=== PATIENT | male | born 1990 | race Caucasian/White ===

== ENCOUNTER 2019-07-20 07:44 | Emergency (ER) | payer BC, SELFPAY ==
[2019-07-20 07:50] VITALS: BP 153/106; PULSE 75; RESP 16; TEMP 36.4; O2SAT 97
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
--- NOTE | 2019-07-20 08:33 | DI.RAD_ITS ---
EXAM: XR WRIST LT COMPLETE CLINICAL HISTORY: trauma TECHNIQUE: COMPARISON: No exams were available for comparison FINDINGS: Three views were obtained. Carpal alignment appears normal. No fracture seen. IMPRESSION:
[2019-07-20] MEDS: Acetaminophen 500 MG TAB 1000 MG PO (08:37)
--- NOTE | 2019-07-20 09:01 | NUR.NOTE ---
Nursing Note: FAXED REFERRAL TO ORTHO
== END 2019-07-20 08:57 | disposition home or self-care (01) ==
PROVIDERS: Emergency Provider Emergency Medicine
DX: S69.92XA Unspecified injury of left wrist, hand and finger(s), initial encounter (principal); V86.56XA Driver of dirt bike or motor/cross bike injured in nontraffic accident, initial encounter
CPT/HCPCS: 29125; 99283; 73110; L3807

== ENCOUNTER 2019-07-26 12:27 | Outpatient (CLI) | payer BC, SELFPAY ==
--- NOTE | 2019-07-26 12:30 | DI.RAD_ITS ---
EXAM: XR WRIST LT COMP NAVICULAR CLINICAL HISTORY: pain. TECHNIQUE: 2D digital imaging was performed. COMPARISON: No exams were available for comparison FINDINGS: BONES: No acute fracture is present. No bony destructive lesion is seen. JOINTS: The carpal bones are normally aligned. SOFT TISSUE: Normal. IMPRESSION: Unremarkable radiographs of the left wrist. DATA REPOSITORY: RADIATION DOSE DELIVERED:
== END 2019-07-26 12:47 ==
PROVIDERS: Referring Provider Emergency Medicine; Visit Provider Orthopaedic Surgery
DX: M25.532 Pain in left wrist (principal)
CPT/HCPCS: 73110

== ENCOUNTER 2019-08-13 20:05 | Emergency (ER) | payer BC, SELFPAY ==
[2019-08-13 20:09] VITALS: BP 146/101; PULSE 196; RESP 21; TEMP 36.9; O2SAT 95
[2019-08-13 20:11] VITALS: BP 146/101; PULSE 146; PULSE 198; RESP 22
[2019-08-13 20:12] VITALS: PULSE 198; RESP 19
[2019-08-13 20:20] VITALS: PULSE 195; RESP 22; O2SAT 95
--- NOTE | 2019-08-13 20:29 | ED.GENADUL_ITS ---
Discharge Plan Disposition Patient Disposition: HOME Condition: Stable Discharge Details Chief Complaint: Palpitatns Clinical Impression: SVT (supraventricular tachycardia) Primary Care Provider: None,None ED Provider: Rivas Solis Home Meds and New Rx's Prescriptions: No Action No Known Home Meds RF: 0 Discharge Instructions Instructions: Supraventricular Tachycardia (ED) Additional Instructions: Follow up with your primary care provider. 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 He denies chest pain or pressure lightheadedness, state he just feels very mild shortness of breath. He arrives in svt with rates in 200's otherwise hd stable, speaking in full sentences. Nursing placed ice on his face which broke the svt. Given lack of chest pain or pressure doubt acs. no evidence of dvt on exam and svt would explain his svt, no hypoxia so doubt PE. Will check for anemia, electrolyte abnormalities and monitor. pt remains stable in sinus rhythm, mildly low tsh and mildly elevated lft's which could be from alcohol as he does drink occasionally. Advised to f/u with pcp and return precautions given Differential Diagnosis Differential Diagnosis: svt, hyperthyroid, anemia ECG Data Attestation: I personally reviewed and interpreted this ECG (s) as follows: Prior ECG tracings: not available for review Interpretation: 1st ekg SVT rate of 201 qtc 391 2nd ekg sinus tachycardia rate of 109 pr 140 qtc 423 HPI General Mode of arrival: ambulatory . Date/Time Provider Initiated Documentation: 08/13/19 20:13 . Limitations to Documentation: no limitations . Information obtained by: patient . History of Present Illness 28 year old M presents to the emergency department with the chief complaint of shortness of breath, described as moderate, and it has been constant. No relieving factors improve symptom(s), No exacerbating factors reported . Patient did receive the following treatments prior to arrival, none Related Data Home Medications Medication Instructions Recorded Confirmed Unknown [No Known Home Meds] 07/26/19 08/13/19 Allergies Allergy/AdvReac Type Severity Reaction Status Date / Time No Known Allergies Allergy Verified 08/13/19 20:14 General Stated Complaint: Palpitatns JOHN: 2 Review of Systems All systems reviewed & are unremarkable except as noted in HPI and below Constitutional Constitutional: Denies chills, Denies fever(s) and Denies weakness Cardiovascular Cardiovascular: Denies chest pain Respiratory Respiratory: Denies cough Gastrointestinal Gastrointestinal: Denies abdominal pain, Denies nausea and Denies vomiting Musculoskeletal Musculoskeletal: Denies joint swelling Neurologic Neurologic: Denies weakness PFSH Social History Smoking/Tobacco Use Status: Never Alcohol Intake: current Alcohol Intake frequency: holidays/special occasions only Drug use: Never Substance use type: does not use Do you feel safe at home: Yes Do you feel safe in your relationship?: Yes Exam Const General: no acute distress Orientation: alert HENMT Head: normal to inspection Ears: external ears normal General nose exam: external nose normal Mouth: moist mucous membranes Eyes General: appearance normal, both eyes and all related structures Neck Neck: normal visual inspection Resp Effort & Inspection: normal respiratory effort and able to speak in complete sen tences Cardio Jugular venous pressure: no JVD Rate: tachycardic Skin General skin exam: no rashes or lesions noted Neuro General: patient alert and patient oriented x3 Extrem General: normal to inspection Psych Mental Status: mental status grossly normal Course Vital Signs Vital signs: Vital Signs Temperature 36.9 C 08/13/19 20:09 Pulse 196 H 08/13/19 20:09 Respiratory Rate 21 08/13/19 20:09 Blood Pressure 146/101 H 08/13/19 20:09 Pulse Oximetry 95 08/13/19 20:09 Temperature 36.9 C 08/13/19 20:09 Temperature Source Skin 08/13/19 20:09 Pulse 196 H 08/13/19 20:09 Respiratory Rate 21 08/13/19 20:09 Blood Pressure 146/101 H 08/13/19 20:09 Blood Pressure Position Supine 08/13/19 20:09 Pulse Oximetry 95 08/13/19 20:09 Oxygen Delivery Method Room Air 08/13/19 20:09 Oxygen Flow Rate 0 08/13/19 20:09
[2019-08-13 20:30] VITALS: PULSE 110; RESP 29; O2SAT 95
[2019-08-13 20:40] VITALS: PULSE 112; RESP 28; O2SAT 95
[2019-08-13 20:40] LABS: Abs Immature Grans 0.02 k/cumm (0.0-0.09); Absolute Basophil Count 0.02 k/cumm (0.0-0.2); Absolute Eosinophil Count 0.06 k/cumm (0.0-0.7); Absolute Lymphocyte Count 3.16 k/cumm (1.2-3.4); Absolute Monocyte Count 0.62 k/cumm (0.11-0.7); Absolute Neutrophil Count 3.75 k/cumm (1.2-6.7); Basophils % 0.3; Eosinophils % 0.8; HCT 43.5 % (40.0-50.0); HGB 15.9 g/dL (13.5-17.5); Immature Grans % 0.3 %; Lymphocytes % 41.4; Mean Corp. HGB Concentration 36.6 g/dL (32.0-36.0); Mean Corpuscular Hemoglobin 31.2 pg (27.0-33.0); Mean Corpuscular Volume 85.5 fL (80-95); Mean Platelet Volume 11.5 fL (8.0-11.0); Monocytes % 8.1; Neutrophils % 49.1; Platelet Count 215 x1000/uL (130-400); RBC 5.09 m/cumm (4.50-6.00); RBC Distribution Width 13.5 % (11.8-14.1); White Blood Cell Count 7.63 k/cumm (4.4-10.8)
[2019-08-13 20:52] LABS: ALT 87 U/L (16-63); AST 47 U/L (15-37); Albumin 4.1 g/dL (3.4-5.0); Alkaline Phosphatase 81 U/L (46-116); Anion Gap 12.5 mmol/L (3-11); BUN 9 mg/dL (7-18); Bilirubin, Total 0.5 mg/dL (0.2-1.0); CO2 24.5 mmol/L (21.0-32.0); CREATININE 1.12 mg/dL (0.70-1.30); Calcium 8.3 mg/dL (8.5-10.1); Chloride 104 mmol/L (98-107); Glucose 124 mg/dL (74-106); Potassium 3.9 mmol/L (3.5-5.1); Sodium 141 mmol/L (136-145); TSH (W/Ref FT4) 0.29 uIU/mL (0.36-3.74); Total Protein 7.6 g/dL (6.4-8.2)
[2019-08-13 21:10] LABS: FREE T4 1.27 ng/dL (0.76-1.46)
== END 2019-08-13 21:11 | disposition home or self-care (01) ==
PROVIDERS: Emergency Provider Emergency Medicine
DX: I47.1 Supraventricular tachycardia (principal); R06.02 Shortness of breath; R94.6 Abnormal results of thyroid function studies
CPT/HCPCS: 36415; 80053; 93005; 99284; 84439; 84443; 85025; 93010; J0153

== ENCOUNTER 2021-07-16 22:10 | Emergency (ER) | payer OTHER, SELFPAY ==
[2021-07-16] VITALS (17 sets, daily range): BP systolic 111–130; BP diastolic 67–79; PULSE 102–212; RESP 13–39; TEMP 36.6; O2SAT 94–98
--- NOTE | 2021-07-16 22:00 | RT.EKG_ITS ---
APPROVED REPORT Exam: Resting ECG Reason for Exam: chest pain Patient Location: E HR:204 bpm ECG Measurements Heart Rate 204 AXIS CA [id number] P [id number] QRSd 79 QRS 69 QT 249 T -1 QTc 459 Conclusion Atrial fibrillation with rapid V-rate...A-rate 205
--- NOTE | 2021-07-16 22:30 | RT.EKG_ITS ---
APPROVED REPORT Exam: Resting ECG Reason for Exam: chest pain Patient Location: E HR:82 bpm ECG Measurements Heart Rate 82 AXIS HI 142 P 39 QRSd 93 QRS 31 QT 349 T 26 QTc 408 Conclusion Sinus rhythm...normal P axis, V-rate 60- 99 Normal [place] Normal Electrocardiogram There are no significant changes compared to prior EKG performed on 07/16/2021 at 22:23.
[2021-07-16] MEDS: Normal Saline 1,000 ML 1000 ML IV (22:45)
[2021-07-16] MEDS: Adenosine 6 MG/2 ML VIAL (22:45)
--- NOTE | 2021-07-16 22:46 | W.ED.GENAD ---
Discharge Plan Disposition Patient Disposition: STILL A PATIENT Condition: Improving Discharge Details Chief Complaint: Chest Pain Clinical Impression: SVT (supraventricular tachycardia), Hypokalemia Primary Care Provider: Maria Esther,Local ED Provider: Sean Connell Home Meds and New Rx's Prescriptions: No Action No Known Home Meds 0RF Medical Decision Making [id number]??30-year-old male with history of SVT, here with chest discomfort with palpitations over the past 1 hour. I reviewed threat monitoring analyst and note regular tachycardia at 200bpm, consistent with SVT. EKG was reviewed and interpreted by me: Please see report, SVT. Attempted vagal maneuvers and these are unsuccessful. Patient provided emergent informed consent to adenosine. Adenosine 6 mg IV was administered and patient converted to converted to sinus rhythm without complication. Repeat EKG was reviewed and interpreted by me: Please see report, sinus tachycardia 102 bpm with no ischemic changes. Labs reviewed and mild hypokalemia noted with potassium of 3.4. I will give potassium chloride 20 mill equivalents p.o. Initial troponin negative. HPI General Mode of arrival: ambulatory. Date/Time Provider Initiated Documentation: 07/16/21 22:45. Limitations to Documentation: no limitations. Information obtained by: patient. HPI Narrative: 30-year-old male with history of SVT presents with chief complaint of palpitations and concern for SVT. Patient notes frequency of SVT is increased to almost monthly at this point. He notes typically SVT improves spontaneously or with vagal maneuvers after a short time. Tonight SVT is persisting for the past hour. Symptoms are moderate. No modifiers. Vagal maneuvers not working. He has associated chest discomfort. Patient does drink some caffeinated beverages and alcoholic beverages a few days a week. No sympathomimetic use. Related Data Home Medications Medication Instructions Recorded Confirmed Unknown [No Known Home Meds] 07/26/19 08/13/19 Allergies Allergy/AdvReac Type Severity Reaction Status Date / Time No Known Allergies Allergy Verified 08/13/19 20:14 General Stated Complaint: Chest/Rib JOHN: 1 Review of Systems All systems reviewed & are unremarkable except as noted in HPI and below Constitutional Constitutional: Denies fever(s) Cardiovascular Cardiovascular: Reports chest pain, Reports palpitations and Denies dyspnea Respiratory Respiratory: Denies dyspnea Endocrine Endocrine: Reports palpitations PFSH All Active Problems (Updated 07/16/21 @ 23:18 by Sean Connell MD) SVT (supraventricular tachycardia) (Chronic) Hypokalemia (Acute) SVT (supraventricular tachycardia) (Chronic) Social History Smoking/Tobacco Use Status: Never Smoking risk assessment performed?: Yes Alcohol Intake: current Alcohol Intake frequency: holidays/special occasions only Drug use: Never Substance use type: does not use Do you feel safe at home: Yes Do you feel safe in your relationship?: Yes Course Vital Signs Vital signs: Vital Signs Temperature 36.6 C 07/16/21 22:26 Pulse 212 H 07/16/21 22:26 Respiratory Rate 18 07/16/21 22:26 Blood Pressure 116/79 07/16/21 22:26 Pulse Oximetry 96 07/16/21 22:26 Temperature 36.6 C 07/16/21 22:26 Temperature Source Temporal Artery Scan 07/16/21 22:26 Pulse 212 H 07/16/21 22:26 Respiratory Rate 18 07/16/21 22:26 Blood Pressure 116/79 07/16/21 22:26 Blood Pressure Position Sitting 07/16/21 22:26 Pulse Oximetry 96 07/16/21 22:26 Pain Level 3 07/16/21 22:26
[2021-07-16 22:59] LABS: Abs Immature Grans 0.02 10^3/uL (0.0-0.06); Absolute Basophil Count 0.08 10^3/uL (0.0-0.2); Absolute Eosinophil Count 0.09 10^3/uL (0.0-0.7); Absolute Lymphocyte Count 4.46 10^3/uL (1.2-3.4); Absolute Monocyte Count 0.81 10^3/uL (0.1-0.8); Absolute Neutrophil Count 4.94 10^3/uL (1.2-6.7); Basophils % 0.8; Eosinophils % 0.9; HCT 47.2 % (40.0-50.0); HGB 16.9 g/dL (13.5-17.5); Immature Grans % 0.2; Lymphocytes % 42.9; MCH 31.8 pg (27.0-33.0); MCHC 35.8 % (32.0-36.0); MCV 89 fL (80-95); MPV 11.9 fL (8.0-11.0); Monocytes % 7.8; Neutrophils % 47.4; Platelet Count 244 10^3/uL (130-400); RBC 5.31 10^6/uL (4.36-5.78); RDW-SD 39.3 fL
[2021-07-16 23:11] LABS: ALT 34 U/L (16-63); AST 24 U/L (15-37); Albumin 4.1 g/dL (3.4-5.0); Alkaline Phosphatase 65 U/L (46-116); Anion Gap 9.4 mmol/L (3-11); BUN 9 mg/dL (7-18); Bilirubin, Total 0.6 mg/dL (0.2-1.0); CO2 26.6 mmol/L (21.0-32.0); CREATININE 0.9 mg/dL (0.70-1.30); Calcium 8.6 mg/dL (8.5-10.1); Chloride 104 mmol/L (98-107); Glucose 103 mg/dL (74-106); Magnesium 2.1 mg/dL (1.8-2.4); Potassium 3.4 mmol/L (3.5-5.1); Sodium 140 mmol/L (136-145); Total Protein 7.5 g/dL (6.4-8.2); Troponin I < 50 ng/L (<or=60)
[2021-07-16] MEDS: Potassium Chloride 20 MEQ TABCR PO (23:25)
[2021-07-17] VITALS (29 sets, daily range): BP systolic 109–139; BP diastolic 66–100; PULSE 80–132; RESP 16–26; O2SAT 94–98
--- NOTE | 2021-07-17 01:10 | ED.PROG_ITS ---
Date of service: 07/17/21 Time of Service: 01:10 Medical Decision Making Patient signed out to me pending repeat EKG and troponin. He had presented with SVT that broke with adenosine. He has had no recurrent arrhythmia. His repeat EKG is normal. His second troponin is negative. He had discussed beta-ligia with his primary care in the past but never started it. Willing to start low- dose Toprol XL and follow-up with primary care in 1 to 2-week. Return to ED for recurrent sustained SVT, chest pain, shortness of breath. Lab Data Lab results reviewed: Yes I reviewed the patient's lab results. ECG Data Attestation: I personally reviewed and interpreted this ECG (s) as follows: Prior ECG tracings: available for review Interpretation: see EKG Sign Out Sign Out Data: Sign Out Comment: follow up delta trop and reassess pt for disposition. Last updated by Sean Connell MD at 07/16/21 23:23 Discharge Plan Disposition Patient Disposition: HOME Condition: Improving Discharge Details Clinical Impression: SVT (supraventricular tachycardia), Hypokalemia Primary Care Provider: Maria Esther,[facility] ED Provider: Wisam Nolasco [place] Meds and New Rx's Prescriptions: New metoprolol succinate 25 mg tablet extended release 24 hr 12.5 mg PO DAILY Qty: 30 0RF Discharge Instructions Instructions: Supraventricular Tachycardia (ED) Additional Instructions: You were seen for SVT that finally broke with adenosine. Your potassium was a little low and was replaced. Will start you on low-dose metoprolol once a day and attempt to control your rate in the future. Please follow-up with primary care in 1 to 2 weeks. Return to ED for further persistent, sustained SVT, chest pain, shortness of breath.
[2021-07-17 02:01] LABS: Troponin I < 50 ng/L (<or=60)
[2021-07-17] MEDS: Metoprolol CR 25 MG TABCR 12.5 MG PO (02:46)
== END 2021-07-17 02:47 | disposition home or self-care (01) ==
PROVIDERS: Student in an Organized Health Care Education/Training Program; Emergency Provider Emergency Medicine
DX: I47.1 Supraventricular tachycardia (principal); E87.6 Hypokalemia
CPT/HCPCS: 36415; 80053; 93005; 96361; 96374; 99284; 83735; 84484; 85025; 93010; J0153

== ENCOUNTER 2021-10-09 17:52 | Outpatient (CLI) | payer OTHER, SELFPAY | END 2021-10-09 17:53 | disposition home or self-care (01) | LOC: DI.CM 17:53 | PROVIDERS: PCP Internal Medicine; Visit Provider Nurse Practitioner Family | DX: R69 Illness, unspecified (principal) | CPT/HCPCS: 93010 ==

== ENCOUNTER 2022-05-31 15:29 | Emergency (ER) | payer OTHER, SELFPAY ==
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
--- OUTSIDE RECORDS SUMMARY | 2022-05-31 15:33 | XMS_ITS ---
Author Name Lorri Rio Address [address], [place] [id number] Organization [facility] Address [address], [place] [id number] Care Team Providers Care Project Construction Manager Name Role Phone Rio Blackmon Unavailable [phone] PROBLEMS Type Condition ICD9-CM Code CPC36-OU Code Onset Dates Condition Status SNOMED Code Problem Supraventricular tachycardia I47.1 Active 6864914 ALLERGIES No Known Allergies ENCOUNTERS Encounter Location Date Diagnosis [facility] [address] [id number] Oct, Encounter for general adult medical examination without abnormal findings Z00.00 and Supraventricular tachycardia I47.[address] [facility] [address] [place] [id number] Aug, Supraventricular tachycardia I47.1 [facility] [address] [id number] Oct, Encounter for screening for respiratory tuberculosis Z11.1 [facility] [address] [id number] Sep, Encounter for screening for respiratory tuberculosis Z11.1 [facility] [address] [id number] Sep, Encounter for screening for respiratory tuberculosis Z11.1 [facility] [address] [id number] Sep, Encounter for screening for respiratory tuberculosis Z11.1 [facility] [address] [place], [place] [id number] Sep, Eczema herpeticum B00.0 [facility] [address] [place], [place] [id number] Mar, Encounter for general adult medical examination with abnormal findings Z00.01 ; Tinea corporis B35.4 ; 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 and Chronic fatigue, unspecified R53.82 IMMUNIZATIONS No Known Immunizations SOCIAL HISTORY Qualifiers Date Never Smoker REASON FOR REFERRAL FUNCTIONAL STATUS PLAN OF CARE Activity Details VITAL SIGNS Heart Rate 68 /min 2021-10-07 Height 70 in 2021-10-07 Height 70 in 2019-08-16 Height 70 in 2018-09-29 Height 70 in 2018-09-22 Height 70 in 2018-04-01 Weight 210 lbs 2021-10-07 Weight 215 lbs 2019-08-16 Weight 211 lbs 2018-09-29 Weight 210 lbs 2018-09-22 Weight 210 lbs 2018-04-01 BMI 30.13 kg/m2 2021-10-07 BMI 30.85 kg/m2 2019-08-16 BMI 30.27 kg/m2 2018-09-29 BMI 30.13 kg/m2 2018-09-22 BMI 30.13 kg/m2 2018-04-01 Blood pressure systolic 138 mm Hg Blood pressure diastolic 86 mm Hg 2021-10 MEDICATIONS Medication Instructions Dosage Frequency Start Date End Date Duration Status Triamcinolone Acetonide 0.1 % Externally Once a day 1 application to affected area 24h Sep, 30 days Active PROCEDURES Procedure Date Ordered Result Body Site TB INTRADERMAL TEST October 06, 2018 TB INTRADERMAL TEST September 29, 2018 VENIPUNCT, ROUTINE* Apr 01, 2018 RESULTS Name Result Date Reference Range COMPREHENSIVE METABOLIC PANEL 2018-04-01 ALBUMIN 4.9 3.6-5.1 ALBUMIN/GLOBULIN RATIO 2.0 1.0-2 .5 ALKALINE PHOSPHATASE 56 40-115 ALT 21 9-46 AST 20 10-40 BILIRUBIN, TOTAL 0.7 0.2-1.2 BUN/CREATININE RATIO NOT APPLICABLE 6-22 CALCIUM 9.7 8.6-10.3 CARBON DIOXIDE 24 20-32 CHLORIDE 105 98-110 CREATININE 0.79 0.60-1.35 eGFR 145 >OR = 60 eGFR NON-AFR. COLOMBIAN 125 >OR = 60 GLOBULIN 2.5 1.9-3.7 GLUCOSE 98 65-99 POTASSIUM 4.3 3.5-5.3 PROTEIN, TOTAL 7.4 6.1-8.1 SODIUM 142 135-146 UREA NITROGEN (BUN) 9 7-25 CBC (INCLUDES DIFF/PLT) 2018-04-01 ABSOLUTE BASOPHILS 28 0-200 ABSOLUTE EOSINOPHILS 42 15-500 ABSOLUTE LYMPHOCYTES 2006 850-390 0 ABSOLUTE MONOCYTES 362 200-950 ABSOLUTE NEUTROPHILS 2261 1500-78 00 BASOPHILS 0.6 EOSINOPHILS 0.9 HEMATOCRIT 48.1 38.5-50.0 HEMOGLOBIN 17.0 13.2-17.1 LYMPHOCYTES 42.7 MCH 30.6 27.0-33.0 MCHC 35.3 32.0-36.0 MCV 86.5 80.0-100.0 MONOCYTES 7.7 MPV 12.8 7.5-12.5 NEUTROPHILS 48.1 PLATELET COUNT 183 140-400 RDW 12.8 11.0-15.0 RED BLOOD CELL COUNT 5.56 4.20-5. 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
[2022-05-31 15:39] VITALS: BP 152/98; PULSE 68; RESP 20; TEMP 36.8; O2SAT 97
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
--- NOTE | 2022-05-31 17:19 | NUR.NOTE ---
Per Susan Carmona, referral made to follow up in one week with primary care, put the referral in care manger's box for assistance.Nursing Note:
== END 2022-05-31 17:27 | disposition home or self-care (01) ==
PROVIDERS: Emergency Provider Emergency Medicine
DX: G89.11 Acute pain due to trauma (principal); M25.562 Pain in left knee; V86.56XA Driver of dirt bike or motor/cross bike injured in nontraffic accident, initial encounter; Y93.55 Activity, bike riding
CPT/HCPCS: 73562; 99284; 72190; 99283

== ENCOUNTER 2022-06-13 00:57 | Outpatient (CLI) | payer OTHER, SELFPAY ==
--- OUTSIDE RECORDS SUMMARY | 2022-06-13 01:01 | XMS_ITS ---
Author Name Lorri Rio Address [address], [place] [id number] Organization [facility] Address [address], [place] [id number] Care Team Providers Care Station Operator Name Role Phone Rio Blackmon Unavailable [phone] PROBLEMS Type Condition ICD9-CM Code ETL10-UT Code Onset Dates Condition Status SNOMED Code Problem Supraventricular tachycardia I47.1 Active 8043404 ALLERGIES No Known Allergies ENCOUNTERS Encounter Location Date Diagnosis [facility] [address] [id number] Oct, Encounter for general adult medical examination without abnormal findings Z00.00 and Supraventricular tachycardia I47.[address] [facility] [address] [place] [id number] Aug, Supraventricular tachycardia I47.1 [facility] [address] [id number] Oct, Encounter for screening for respiratory tuberculosis Z11.1 [facility] [address] [id number] Sep, Encounter for screening for respiratory tuberculosis Z11.1 [facility] [address] [id number] Sep, Encounter for screening for respiratory tuberculosis Z11.1 [facility] [address] [id number] Sep, Encounter for screening for respiratory tuberculosis Z11.1 [facility] [address] [place], [place] [id number] Sep, Eczema herpeticum B00.0 [facility] [address] [place], [place] [id number] Mar, Encounter for general adult medical examination [...] eGFR 145 >OR = 60 eGFR NON-AFR. 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
--- NOTE | 2022-06-13 08:15 | DI.MRI_ITS ---
Exam(s) MR LOWER JOINT LT WO EXAM: MR LOWER JOINT LT WO CLINICAL HISTORY: L KNEE INJURY, ? LT ACL TEAR, S83.512A. TECHNIQUE: Multiplanar multisequence MRI was performed. COMPARISON: CR,XR XR KNEE LT 3V AP,LAT,DASH from 05/31/2022 FINDINGS: BONES: There is marrow edema seen in the proximal tibia medial greater than lateral. There is also m arrow edema seen in the medial aspect of the medial femoral condyle. No evidence of a fracture is ap preciated. JOINTS: Articular cartilage is unremarkable. There is a joint effusion present. There is patella pli ca present. TENDONS: Extensor mechanism: Unremarkable. Medial retinaculum: Unremarkable. Lateral retinaculum: Unremarkable. Popliteus: Unremarkable. MUSCLES: Unremarkable. MENISCI: The medial meniscus is unremarkable. The lateral meniscus is unremarkable. SOFT TISSUES: Unremarkable. LIGAMENTS: Anterior Cruciate: There is a torn anterior cruciate ligament. Posterior Cruciate: Unremarkable. Medial Collateral:Unremarkable. Lateral Collateral: Unremarkable. OTHER: IMPRESSION: 1. ACL tear. 2. Contusions involving the medial femoral condyle in the proximal tibia. 3. No evidence of a meniscal tear. 4. Joint effusion. DATA REPOSITORY:
== END 2022-06-13 01:17 ==
LOC: DI 00:57
PROVIDERS: PCP Internal Medicine; Visit Provider Student in an Organized Health Care Education/Training Program
DX: S83.512A Sprain of anterior cruciate ligament of left knee, initial encounter (principal); M23.612 Other spontaneous disruption of anterior cruciate ligament of left knee; S82.102A Unspecified fracture of upper end of left tibia, initial encounter for closed fracture
CPT/HCPCS: 73721

== ENCOUNTER 2022-07-10 07:26 | Day surgery (SDC) | payer OTHER, SELFPAY ==
[2022-07-10] VITALS (11 sets, daily range): BP systolic 103–131; BP diastolic 50–91; PULSE 75–86; RESP 11–26; TEMP 36.9–37.2; O2SAT 93–98; BMI 31.1
--- NOTE | 2022-07-10 06:12 | W.ANESPRE ---
General Info Date of Service Date Performed: 07/10/22 Height: 5 ft 10 in Weight: 98.43 kg Body Mass Index (BMI): 31.1 Surgical Procedure: Operation Date: 07/10/22 09:10 Proposed Procedure Side Surgeon p Knee ACL Reconstruction (Allograft), and any other indicated surgery Left Vaughn Taylor MD Meds Allergies and Home Medications Allergies Allergy/AdvReac Type Severity Reaction Status Date / Time No Known Allergies Allergy Verified 07/10/22 07:48 Home Medication Medication Instructions Recorded acetaminophen 500 mg tablet 1,000 mg PO Q6H PRN 06/03/22 (Tylenol Extra Strength) Current Visit Medications: Current Medications Generic Name Dose Route Start Last Admin Trade Name Freq PRN Reason Stop Dose Admin Ringer's Solution 1,000 mls @ 30 mls/hr 07/10/22 06:00 IV 08/08/22 23:59 INFUSION ROWENA Cefazolin Sodium/Dextrose 2 gm in 50 mls @ 100 mls/hr 07/10/22 06:00 Ancef Duplex IVPB 07/10/22 16:00 PREOP ROWENA IV Miscellaneous Supplies 1 each 07/10/22 06:00 Iv Access IV 08/08/22 23:59 DIRECTED ROWENA Sodium Chloride 0 ml 07/10/22 06:00 Normal Saline Flush 10 Ml Syr IV 08/08/22 23:59 PRN PRN Sodium Chloride 0 ml 07/10/22 06:00 Normal Saline 10 Ml Vial IJ 08/08/22 23:59 DIRECTED PRN Sterile Water 0 ml 07/10/22 06:00 Water,Injection,Sterile 10 Ml Vial IJ 08/08/22 23:59 DIRECTED PRN PFSH Active Problems Active Problems: Problem Status Onset Code Left ACL tear 05/31/22 S83.512A SVT (supraventricular tachycardia) I47.1 Tobacco Smoking/Tobacco Use Status: Never Alcohol Alcohol Intake: current Alcohol intake frequency: a few times a month Substance Use Substance use: Never Substance use type: does not use Vital Signs and Lab Results Vital Signs Most Recent Vital Signs in EMR: Temp Pulse Resp BP Pulse Ox 37.1 C 82 16 131/86 93 07/10/22 07:48 07/10/22 07:48 07/10/22 07:48 07/10/22 07:48 07/10/22 07:48 Lab Results Blood Type / Crossmatch: No Data to Display Complete Blood Count: No Data to Display Complete Metabolic Panel: No Data to Display Liver Function Panel: No Data to Display Coagulation Panel: No Data to Display Cardiac Panel: No Data to Display Arterial Blood Gas: No Data to Display Venous Blood Gas: No Data to Display Pancreas Panel: No Data to Display Thyroid Panel: No Data to Display Infectious Disease: No Data to Display Blood Cultures: No Data to Display Toxicology Panel: No Data to Display Imaging and Studies Imaging and Studies Study information below may be from another EMR and interpreted by another provider. Please see original notes in EMR for more complete details. EKG Summary: 07/28: sinus. Anesthesia Assessment and Plan Anesthesia History Personal History: No History of General Anesthesia Family History: No Family History of Anesthesia Complications Exercise Tolerance Exercise Tolerance: Metabolic Equivalents>4 Cardiac & Pulmonary Exam Cardiac Exam: Normal S1/S2 Heart Sounds Pulmonary Exam: Clear Bilateral Breath Sounds Implantable Cardiac Device Does patient have a Pacemaker or an ICD?: No Airway Exam Known Difficult Airway: No Mallampati Class: 2 Mouth Opening: Normal (> 3cm) Thyromental Distance: Greater than 3 cm Neck Range of Motion: Full ROM Neck Circumference: Normal Teeth Condition: Normal Dentition ASA Classification ASA Score: ASA 2 Emergency Case?: No NPO Status NPO Status: NPO Clears >2 hours, Solids >8 hours Anesthesia Plan Resuscitation Status: Full Code Anesthesia Technique: General Anesthesia Airway Planned: Endotracheal Tube Pain Management: Surgeon and patient request nerve block Monitors Used: Standard Monitors Preoperative Comments:: 31 yo male for ACL repair. Sig PMHx: SVT (2 episodes, vagal maneuvers failed, given 6 mg adenosine in the ED with conversion on one occasion the other time he reverted back. 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
--- NOTE | 2022-07-10 07:11 | PDOC.DSDIS_ITS ---
Date of service: 07/10/22 Time of Service: 14:00 Discharge Plan Discharge Details Attending Provider: Vaughn Taylor Primary Care Provider: Rio Blackmon Home Meds and New Rx's Prescriptions: New naproxen 250 mg tablet 250 - 500 mg PO BID PRNQty: 40 0RF Rx Instructions: take with a meal aspirin 81 mg tablet,delayed release (DR/EC) 81 mg PO DAILY 14 Days Qty: 14 0RF oxycodone 5 mg tablet 5 - 10 mg PO Q4H MDD 30 mg PRN (Reason: moderate to severe pain) Qty: 18 0RF Continued acetaminophen [Tylenol Extra Strength] 500 mg tablet 1,000 mg PO Q6H PRN Discharge Instructions Additional Instructions: Surgery: Left knee arthroscopy with quadriceps allograft ACL reconstruction Activity: Weightbearing as tolerated. Advance range of motion as comfort allows. No knee brace or crutches needed as soon as comfortable. It is important to restore full knee extension as soon as possible?recommend quad sets/isometrics. Recommend avoiding sports and open?chain activities for 9-12 months. A physical therapy prescription will be sent electronically to start in 2 to 3 weeks. Prescriptions: Aspirin 81 mg take 1 daily to prevent a blood clot for 14 days Naproxen 250 mg take 1-2 every 12 hours with a meal as needed for moderate pain Oxycodone 5 mg take 1-2 every 4-6 hours as needed for severe pain You may use crel-fcq-ujwvakx Tylenol (acetaminophen) as needed for mild pain. These pain medications may be taken all at once or in different combinations as needed. Also, recommend Colace (docusate) as a stool softener as surgery and pain medicine cause constipation. You may try nhor-smw-zlhvddl diphenhydramine (Benadryl) 25-50 mg nightly as a sleep aid Dressings: Leave dressing in place for 3 days. May then remove and leave open to air or cover incisions with Band-Aids. Leave the sticky Steri-Strips in p lace until they fall off or remove them after you shower. May shower after 5 days. Follow-up: 10-[address] Taylor You may take off the leg compression stockings this evening at home. You may also leave them on a few days longer if you have a history of leg swelling or edema. Let us know right away if you develop any redness, drainage, fevers, chest pain, or trouble breathing. Do not drink alcohol or drive for at least 24 hours after anesthesia. Please call the office during business hours with any questions or concerns. DS: Diagnosis Discharge Diagnosis (1) Left ACL tear: Status: Acute
--- NOTE | 2022-07-10 07:12 | ROE_ITS ---
Date of service: 07/10/22 Time of Service: 10:30 Operative Note Operative Note DATE OF PROCEDURE: 07/10/22 PRE-OP DIAGNOSIS: Left knee: 1. ACL rupture PROCEDURE: Left knee: 1. ACL reconstruction, CPT #56063: Quadriceps allograft SURGEON: Vaughn Taylor INTERNAL COMBUSTION ENGINE ASSEMBLER: Ana Wright ANESTHESIA TYPE: Local By Surgeon, General LMA/ETT and Primary Nerve Block Refer to Anesthesia Record ESTIMATED BLOOD LOSS: 10 TOURNIQUET TIME: 0 COMPLICATIONS: None Patient was transported to: PACU Patient's condition: stable Implants: Arthrex ACL TightRope II RT and ABS with 8x12 mm cortical button QuadLink pre-sutured quadriceps allograft: 10 x68 mm Indications: Please see complete medical record for details. Findings: Exam under anesthesia: Full range of motion, grossly positive Jose G, stable varus and valgus Arthroscopic findings: Complete mid substance ACL rupture. Intact PCL. Intact medial and lateral menisci. Intact articular cartilage. Procedure Description: In the operating room, general anesthesia was induced. The patient was positioned supine on the operating room table. All bony prominences were well- padded. Preoperative antibiotics were administered. The knee was prepped and d raped in the usual sterile fashion. The correct patient, procedure, and side of the procedure were all verified prior to incision. Exam under anesthesia was performed. 20 cc of 0.25% bupivacaine containing epinephrine was infiltrated about the planned anteromedial, anterolateral, lateral distal femoral, and pretibial surgery sites. The standard high and tight anterolateral and anteromedial portals were established and a complete diagnostic arthroscopy was performed with relevant findings detailed above. A passport cannula was inserted in both the anteromedial and anterolateral portals. In the intercondylar area, the ACL remnant was removed leaving enough footprint on the femur and tibia to localize anatomic socket placement. A minimal notchplasty was performed to allow proper visualization of the back wall. The graft was measured and prepared on the back table. The TightRope II BTB and TightRope II ABS adjustable-loop cortical suspensory fixation implants were loaded on QuadLink pre-sutured quadriceps allograft. The femoral and measured 9.5 mm and tibial end measured 10 mm. The graft was marked at 20 mm from each end. On the ABS side, the tensioning sutures were marked and a shuttle suture was added. The graft was manually tensioned, the construct length was 70 mm under tension, and the construct did not demonstrate any elongation. The graft was then compressed in a undersized graft tube and covered with vancomycin soaked sponges. The femoral guide was then placed through the anterolateral portal carefully targeting the appropriate anatomic ACL origin. The outer 9 mm diameter of the guide was positioned anatomically with appropriate space between the proximal and posterior articular margins. On the lateral thigh, drill guide position and angle adjusted to about 60 degree angle to the longitudinal axis of the femur in the coronal plane and 20 degree angle to the trans-epicondylar axis in the axial plane to create the most optimal femoral socket. Knife and snap were used to open the skin and IT band and placed the drill guide on bone while maintaining appropriate position on the lateral wall. The tunnel length was noted to be used for marking and passing the femoral button. The flip cutter was then drilled to the appropriate location. The drill guide malleted 7 mm into the cortex. The remainder of the targeting guide removed. The FlipCutter was deployed to 9.5mm and retrograde reaming done to a depth of 30 mm. Bony debris was removed with the shaver. The flip cutter was then closed, withdrawn, and a FiberStick used to pass a #2 FiberWire shuttle stitch, which was withdrawn out the anterolateral portal. The tibial guide was then used to target the anatomic ACL insertion through the anteromedial portal. The drill angle adjusted to 57.5 degrees and a pretibial incision made. The drill guide was placed on bone, tunnel length noted, and the flip cutter drilled to the appropriate location. The drill guide malleted 7 mm into the cortex. The remainder of the targeting guide removed. The FlipCutter was deployed to 10mm and retrograde reaming done to a depth of 35mm. Bony debris was removed with the shaver. The flip cutter was then closed, withdrawn, and a FiberStick used to pass a #2 FiberWire shuttle stitch, which was withdrawn out the anteromedial portal. The mechanical shaver was used to remove bone debris as well as chamfer and remove soft tissue from the edges of the sockets. A femoral shuttle sutures were withdrawn out the anterior medial portal. The PassPort was removed. This portal dilated to accommodate the graft size. The graft was brought over to the knee and the femoral sutures shuttled out the lateral thigh and advanced until the button was near the far cortex. Under arthroscopic visualization with the knee slightly hyperflexed, and the button was then passed and flipped on the far cortex. Counter traction was then maintained on the tibial side of the graft while it was carefully advanced into the knee and then about 15 mm into the femoral socket. The tibial sutures were then shuttled through the tibial tunnel and passing stitch removed while carefully noting the tensioning stitches. The graft was then dunked about 15 mm into the tibial socket with probe assistance. 8x12 mm ABS button was then loaded to the ABS loop and tension sutures used to bring the cortical button down to bone. The graft was advanced and then provisionally tensioned on both the femoral and tibial sides. The knee was then cycled 22 times, tensioning rechecked, and final tightening done with the knee in full extension with a moderate reverse Jose G maintained. The graft position and tension were appropriate. There was no impingement in full extension. Jose G exam was rocksolid. Femoral passing sutures were removed. Backup knots were then tied on both sides and suture tails cut. The knee and all portals were copiously irrigated and then knee drained of arthroscopic fluid. 3-0 Monocryl was used to close the portals and small incisions in a buried interrupted fashion. Mastisol, Steri-Strips, Xeroform, 4 x 4 gauze, and sterile soft roll was applied. The extremity was wrapped gently with an Hari bandage. A soft knee immobilizer placed. The patient awoke from anesthesia without complication and was transferred to the recovery room in a stable condition.
[2022-07-10] MEDS: Lactated Ringers 1,000 ML 30 ML IV (08:11)
--- NOTE | 2022-07-10 09:26 | W.ANESNERVE ---
Nerve Block Single Injection Procedure Date and Time Date Performed: 07/10/22 Procedure Start: 08:54 Location Where Procedure Performed Procedure Location: Day Surgery Unit Reason Performed: Postoperative Analgesia Requesting Provider: Vaughn Taylor Timeout Performed Timeout Performed: Yes Monitoring Used ECG, Blood Pressure and SpO2 Sterility Sterility: Hand Hygiene, Surgical Cap, Surgical Mask, Sterile Gloves and Chlorhexidine Sedation Given During Procedure Sedation Given (Indicate Dose Given): Versed IV Dose:: 5 mg Patient Mental Status Patient Mental Status: Sedate with meaningful communication Nerve Block 1st Nerve Block: Laterality: Left Block Type: iPACK Ultrasound Image Saved?: Yes Needle / Catheter Used: 100mm SonoPlex II Local Anesthetic Bolus (Indicate Dose Given): Injected in 3-5ml increments after negative blood aspiration and Bupivacaine 0.25% Dose:: 12 mL Additives (Indicate Dose Given): Epinephrine to make 1:400,000 (2.5mcg/ml) Dose:: 30 mcg Ultrasound: Sterile probe cover and gel used Nerve Stimulator: Supplement to Ultrasound use and No twitch or parasthesia noted < 0.5 mA Paresthesia: None Procedure Tolerated: No Complications Procedure Outcome: Successful Performed By: Aiden Romero 2nd Nerve Block: Laterality: Left Block Type: Adductor Canal Ultrasound Image Saved?: Yes Needle / Catheter Used: 100mm SonoPlex II Local Anesthetic Bolus (Indicate Dose Given): Injected in 3-5ml increments after negative blood aspiration and Bupivacaine 0.25% Dose:: 12 mL Additives (Indicate Dose Given): Epinephrine to make 1:400,000 (2.5mcg/ml) Dose:: 30 mcg Ultrasound: Sterile probe cover and gel used Nerve Stimulator: Supplement to Ultrasound use and No twitch or parasthesia noted < 0.5 mA Paresthesia: None Procedure Tolerated: No Complications Procedure Outcome: Successful Performed By: Aiden Romero
[2022-07-10] MEDS: ceFAZolin 2 GM/50 ML BAG IVPB (09:38)
[2022-07-10] MEDS: EPINEPHrine 30 MG/30 ML VIAL (10:24)
[2022-07-10] MEDS: HYDROmorphone 2 MG/ML SYR IVP (12:17)
[2022-07-10] MEDS: Normal Saline 10 ML VIAL IJ (12:17)
[2022-07-10] MEDS: fentaNYL 100 MCG/2 ML VIAL IVP (12:42)
[2022-07-10] MEDS: oxyCODONE 5 MG TAB PO (13:27)
--- NOTE | 2022-07-10 14:01 | W.ANESPOSTOP ---
Postoperative Evaluation Date, Time and Location Date Performed: 07/10/22 Time Performed: 14:01 Patient Location: Day Surgery Unit Vital Signs Most Recent Imported Vital Signs: Most Recent Vital Signs Temp Pulse Resp BP Pulse Ox 37.0 C 78 16 127/82 96 07/10/22 13:36 07/10/22 13:36 07/10/22 13:36 07/10/22 13:36 07/10/22 13:36 Pain Score Most Recent Pain Score: Most Recent Pain Score Pain Level 7 07/10/22 13:36 Assessment Mental Status: Awake (Alert & Oriented to Patient Baseline) Airway and Respiratory Function: Patent airway with normal (patient baseline) respiratory exam Cardiovascular Function: Hemodynamically Stable Hydration Status: Adequately Hydrated Nausea & Vomiting: No Nausea or Vomiting Pain: Pain is tolerable per patient Peripheral Nerve Block: Regional nerve block not resolved at time of post operative discharge
== END 2022-07-10 14:30 | disposition home or self-care (01) ==
PROVIDERS: PCP Internal Medicine; Visit Provider Student in an Organized Health Care Education/Training Program
PROC: (CPT 29888; principal; 2022-07-10 09:00)
DX: S83.512A Sprain of anterior cruciate ligament of left knee, initial encounter (principal); X58.XXXA Exposure to other specified factors, initial encounter; I47.1 Supraventricular tachycardia
CPT/HCPCS: 29888; 76942; J0131; J0171; J0690; J1100; J1170; J1885; J2250; J2405; J2704; J3010; J3475

== ENCOUNTER 2022-10-07 15:07 | Outpatient (CLI) | payer OTHER, SELFPAY ==
--- NOTE | 2022-10-07 13:15 | DI.RAD_ITS ---
Exam(s) XR KNEE LT 2V AP,LAT EXAM: XR KNEE LT 2V AP,LAT CLINICAL HISTORY: S/P ACL REPAIR. TECHNIQUE: 2D digital imaging was performed. Three views. COMPARISON: MR MR LOWER JOINT LT WO from 06/13/2022 FINDINGS: BONES: No acute fracture is present. No bony destructive lesion is seen. Prior ACL repair. JOINTS: The knee is normally aligned. A joint effusion is seen. Joint spaces are maintained. SOFT TISSUE: Mild anterior soft tissue swelling. IMPRESSION: Post ACL repair. Small joint effusion. DATA REPOSITORY: RADIATION DOSE DELIVERED:
== END 2022-10-07 15:08 | disposition home or self-care (01) ==
LOC: DIORS 15:09
PROVIDERS: PCP Internal Medicine; Referring Provider Internal Medicine; Visit Provider Student in an Organized Health Care Education/Training Program
DX: S83.512D Sprain of anterior cruciate ligament of left knee, subsequent encounter (principal); X58.XXXD Exposure to other specified factors, subsequent encounter
CPT/HCPCS: 73560

== ENCOUNTER 2024-07-28 13:20 | Outpatient (CLI) | payer OTHER, SELFPAY ==
--- NOTE | 2024-07-28 13:15 | RT.EKG_ITS ---
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
== END 2024-07-28 13:21 | disposition home or self-care (01) ==
PROVIDERS: PCP Internal Medicine; Visit Provider Nurse Practitioner Family
DX: Z02.1 Encounter for pre-employment examination; Z13.6 Encounter for screening for cardiovascular disorders
CPT/HCPCS: 93005; 93010